=== PATIENT | male | born 1990 | race American Indian/Alaskan Native ===

== ENCOUNTER 2017-05-06 18:44 | Emergency (ER) | payer MEDICAID, OTHER ==
[2017-05-06 18:44] VITALS: BMI 24.3
[2017-05-06] MEDS ORDERED: Sodium Chloride 0.9% 1,000 ML IV STA (19:13)
--- NOTE | 2017-05-06 19:22 | ED PDOC ---
Arrival/HPI - General Chief Complaint: Substance Abuse Time Seen by Provider: 05/06/17 19:02 Historian: Patient, Family - History of Present Illness Narrative History of Present Illness (Text): 05/06/17 19:22 A 26 year old male, whose past medical history includes substance abuse, presents to the emergency department from home accompanied with family for ingesting janeth a few hours ago. Family notes patient was mildly agitated. Patient reports he "wanted to get high". At this time, patient is mildly agitated at times. Denies any suicidal ideation, homicidal ideation or any other complaints at this time. Time/Duration: 1-3 hours Symptom Onset: Sudden Symptom Course: Unchanged Activities at Onset: Rest Context: Home Past Medical History - Provider Review Nursing Documentation Reviewed: Yes - Infectious Disease Hx of Infectious Diseases: None - Tetanus Immunization Tetanus Immunization: Unknown - Psychiatric Hx Depression: No Hx Emotional Abuse: No Hx Physical Abuse: No Hx Substance Use: Yes (marijuana, K2, "oxy") - Suicidal Assessment Feels Threatened In Home Enviroment: No Family/Social History - Physician Review Nursing Documentation Reviewed: Yes Family/Social History: No Known Family HX Smoking Status: Never Smoked Hx Alcohol Use: Yes Frequency of alcohol use: Socially Hx Substance Use: Yes (marijuana, K2, "oxy") Allergies/Home Meds Allergies/Adverse Reactions: Allergies No Known Allergies Allergy (Verified 05/06/17 18:47) Home Medications: Home Meds Medication Instructions Recorded Confirmed No Known Home Med 03/18/13 05/06/17 Review of Systems - Physician Review All systems were reviewed & negative as marked: Yes - Review of Systems Neurological: absent: Headache Psychiatric: Other (aggitated). absent: Suicidal Ideation (no homicidal ideation) Physical Exam Vital Signs Reviewed: Yes Vital Signs Temp Pulse Resp BP Pulse Ox 05/06/17 19:51 111 H 16 160/91 H 97 05/06/17 18:44 97.7 F 114 H 16 177/103 H 95 Temperature: Afebrile Blood Pressure: Hypertensive Pulse: Tachycardic Respiratory Rate: Normal Appearance: Positive for: Other (agitated) Pain Distress: None Mental Status: Positive for: Alert and Oriented X 3 - Systems Exam Head: Present: Atraumatic, Normocephalic Pupils: Present: PERRL Extroacular Muscles: Present: EOMI Conjunctiva: Present: Normal Mouth: Present: Moist Mucous Membranes Neck: Present: Normal Range of Motion Respiratory/Chest: Present: Clear to Auscultation, Good Air Exchange. No: Respiratory Distress, Accessory Muscle Use Cardiovascular: Present: Tachycardic. No: Murmurs Abdomen: Present: Normal Bowel Sounds. No: Tenderness, Distention, Peritoneal Signs Back: Present: Normal Inspection Upper Extremity: Present: Normal Inspection. No: Cyanosis, Edema Lower Extremity: Present: Normal Inspection. No: Edema Neurological: Present: GCS=15, CN II-XII Intact, Speech Normal Skin: Present: Warm, Dry, Normal Color. No: Rashes Psychiatric: Present: Alert, Oriented x 3, Agitated Medical Decision Making ED Course and Treatment: 05/06/17 19:20 Impression: A 26 year old male with substance abuse. Plan: -- EKG -- labs -- Urinalysis -- IV fluids -- Reassess and disposition Prior Visits: Notes and results from previous visits were reviewed. Patient was last seen in the emergency department on 03/18/13 for evaluation of right sided jaw pain s/p trip and fall. Progress Notes: 05/06/17 20:17 ekg sinus tach 134 lvh with repol no previous 05/06/17 20:26 pt observed. tachycardia reolved. pt now states feels well and sober. faimly bedside requesting to take pt home. pr oriented x 3. family refuses further obs in hosptial. request immediate d/c. pt clinically sober. at length discussion of risk of drug use. pt verbalzies understanding. - Lab Interpretations Lab Results: 05/06/17 18:55 05/06/17 19:40 Lab Results 05/06/17 19:40: Sodium 141, Potassium 3.5 L, Chloride 101, Carbon Dioxide 27, Anion Gap 17, BUN 8, Creatinine 1.2, Est GFR ( Amer) > 60, Est GFR (Non- Af Amer) > 60, Random Glucose 120 H, Calcium 9.3, Total Bilirubin 0.6, AST 38, ALT 32, Alkaline Phosphatase 49, Total Protein 8.0, Albumin 4.7, Globulin 3.3, Albumin/Globulin Ratio 1.4 05/06/17 19:24: POC Glucose (mg/dL) 124 H 05/06/17 18:55: Alcohol, Quantitative < 10 05/06/17 18:55: Salicylates < 1 L, Acetaminophen < 10.0 L 05/06/17 18:55: WBC 5.3, RBC 4.75, Hgb 13.5 L, Hct 38.5 L, MCV 81.1, MCH 28.4, MCHC 35.1, RDW 12.6, Plt Count 263, MPV 9.9, Gran % 52.3, Lymph % (Auto) 32.8, J[place] % (Auto) 14.1 H, Eos % (Auto) 0.4 L, Baso % (Auto) 0.4, Gran # 2.78, Lymph # 1.7, Jerauld # 0.8 H, Eos # 0.0, Baso # 0.02 I have reviewed the lab results: Yes - EKG Interpretation Interpreted by ED Physician: Yes Type: 12 lead EKG - Medication Orders Current Medication Orders: Discontinued Medications Sodium Chloride (Sodium Chloride 0.9%) 1,000 mls @ 999 mls/hr IV .[id number] STA Stop: 05/06/17 20:13 - Scribe Statement The provider has reviewed the documentation as recorded by the Abbey Lopez Provider Scribe Attestation: All medical record entries made by the Scribe were at my direction and personally dictated by me. I have reviewed the chart and agree that the record accurately reflects my personal performance of the history, physical exam, medical decision making, and the department course for this patient. I have also personally directed, reviewed, and agree with the discharge instructions and disposition. Disposition/Present on Arrival - Present on Arrival Any Indicators Present on Arrival: No History of DVT/PE: No History of Uncontrolled Diabetes: No Urinary Catheter: No History of Decub. Ulcer: No History Surgical Site Infection Following: None - Disposition Have Diagnosis and Disposition been Completed?: Yes Diagnosis: Drug abuse Disposition: HOME/ ROUTINE Disposition Time: 20:27 Condition: STABLE Discharge Instructions (ExitCare): Polysubstance Abuse (ED) Referrals: [facility] [Outside] - Follow up with primary [facility] [place] [Outside] - Follow up with primary Alcoholics Anonymous [Outside] - Follow up with primary Forms: [facility] ([place])
[2017-05-06 19:35] LABS: BASO # 0.02 K/mm3 (0.0-2.0); BASO % 0.4 % (0.0-3.0); EOS % 0.4 % (1.5-5.0); GRAN # 2.78 (1.4-6.5); GRAN % 52.3 % (50.0-68.0); HEMOGLOBIN 13.5 g/dL (14.0-18.0); LYMPH # 1.7 (1.2-3.4); LYMPH % 32.8 % (22.0-35.0); MEAN CELL VOLUME 81.1 fl (80.0-105.0); MEAN CORPUSCULAR HEMOGLOBIN 28.4 pg (25.0-35.0); MEAN CORPUSCULAR HGB CONC 35.1 g/dl (31.0-37.0); MEAN PLATELET VOLUME 9.9 fl (7.0-11.0); MONO # 0.8 (0.1-0.6); MONO % 14.1 % (1.0-6.0); PLATELET COUNT 263 10^3/uL (120.0-450.0); RBC 4.75 10^6/uL (3.5-6.1); RED CELL DISTRIBUTION WIDTH 12.6 % (11.5-14.5); WHITE BLOOD COUNT 5.3 10^3/ul (4.5-11.0)
[2017-05-06 19:46] LABS: ACETAMINOPHEN < 10.0 ug/ml (10.0-20.0); SALICYLATE < 1 mg/dL (2.0-20.0)
[2017-05-06 19:52] VITALS: RESP 16; TEMP 97.7
[2017-05-06 20:01] LABS: ALT/SGPT 32 U/L (7-56); AST/SGOT 38 U/L (15-59); BLOOD UREA NITROGEN 8 mg/dL (7-21); CALCIUM 9.3 mg/dL (8.4-10.5); GFR AFRICAN-AMERICAN > 60; GFR NON-AFRICAN AMERICAN > 60
[2017-05-06 20:12] LABS: ALB/GLOB RATIO 1.4 (1.1-1.8); ALBUMIN 4.7 g/dL (3.0-4.8)
[2017-05-06 21:07] VITALS: BP 135/84; PULSE 92; O2SAT 99
--- NOTE | 2017-05-07 18:55 | CARD ---
APPROVED REPORT EKG Measurement Heart [id number] <Conclusion> Sinus tachycardia Biatrial enlargement Left ventricular hypertrophy with repolarization abnormality Abnormal ECG
== END 2017-05-06 21:07 | disposition home or self-care (01) ==
LOC: ED 18:44
DX: F19.10 Other psychoactive substance abuse, uncomplicated (principal)
CPT/HCPCS: 80053; 82948; 85025; 93005; 99283; G0480